=== PATIENT | female | born 1950 | race Caucasian/White ===

== ENCOUNTER 2024-02-13 08:26 | Outpatient (RCR) | payer OTHER, SELFPAY ==
[2024-02-13 08:46] VITALS: BP 114/70; PULSE 63; TEMP 36.1; O2SAT 99
--- NOTE | 2024-02-13 08:48 | PC.NURSE ---
0845 Procedure explained, patient verbalizes understanding.Straight cath with female mini cath per Pranay DONALD, clear yellow urine returned, sent to laboratory, patient tolerated well.
--- NOTE | 2024-02-13 09:35 | PC.NURSE ---
0845 Procedure explained to patient, verbalized understanding. Attempt per Pranay at straight cath without success, as well as Ana RN. 0930 3rd attemp per MGarcia with clear yellow urine obtained, sent to laboratory. Patient tolerated well. 0940 Released ambulatory
[2024-02-13 10:21] LABS: Bilirubin Urine NEGATIVE (NEGATIVE); Blood Urine NEGATIVE (NEGATIVE); Clarity Urine CLEAR (CLEAR); Color Urine LT. YELLOW (YELLOW); Glucose Urine UA >=1000 mg/dL (NEGATIVE); Ketones Urine NEGATIVE (NEGATIVE); Leukocyte Esterase Urine NEGATIVE (NEGATIVE); Nitrite Urine NEGATIVE (NEGATIVE); Protein Urine NEGATIVE (NEG/TRACE); Specific Gravity Urine 1.015 (1.005-1.025); Urobilinogen Urine 0.2 EU/dL (0.2-1.0)
[2024-02-13 10:24] LABS: Urine Microscopic Indicated NO
== END 2024-02-13 10:30 | disposition home or self-care (01) ==
LOC: INF 08:26
PROVIDERS: PCP Family Medicine; Visit Provider Personal Emergency Response Attendant
DX: N30.90 Cystitis, unspecified without hematuria (principal)
CPT/HCPCS: 51701; 81003